=== PATIENT | female | born 1935 | race Caucasian/White ===

== ENCOUNTER 2019-03-31 09:37 | Emergency (ER) | payer BC, MEDICARE, OTHER ==
[~2019-03-31] VITALS: Ht 167.6 cm; Wt 66.7 kg
--- NOTE | 2019-03-31 09:45 | NUR ---
84 YEAR OLD FAMALE SUJEY, FROM HOME, C/O HEADACHE 3/ PS STARTED THIS MORNING. ALERT AND ORIENTED X4, BREATHING EVEN AND UNLABORED WITH NO DISTRESS NOTED. SKIN INTACT. AWAITING TO BE SEEN BY .
--- NOTE | 2019-03-31 09:55 | NUR ---
urine collected and sent to lab.
--- NOTE | 2019-03-31 09:55 | NUR ---
SHEET TURNER AT BEDSIDE TO TAKE PATIENT FOR CT SCAN
[2019-03-31 09:59] LABS: BASOPHILS # (AUTO) 0.1 /CMM (0.0-0.2); EOSINOPHILS % (AUTO) 2.3 % (0.0-6.0); HEMATOCRIT 42 % (33-45); HEMOGLOBIN 14.1 g/dL (11.5-14.8); LYMPHOCYTES # (AUTO) 1.3 /CMM (0.8-4.8); MEAN CORPUSCULAR HGB CONC 34 g/dl (31.0-36.0); MEAN CORPUSCULAR VOLUME 95 fL (82-100); MONOCYTES # (AUTO) 0.6 /CMM (0.1-1.30); MONOCYTES % (AUTO) 8.5 % (2.0-12.0); NEUTROPHILS # (AUTO) 4.4 /CMM (1.8-8.9); NEUTROPHILS % (AUTO) 68.2 % (43.0-81.0); PLATELET COUNT (AUTO) 342 /CMM (150-450); RED BLOOD CELL COUNT(AUTO) 4.42 MIL/uL (4.0-5.2); WHITE BLOOD COUNT (AUTO) 6.5 K/uL (4.3-11.0)
[2019-03-31 10:01] LABS: BILIRUBIN,URINE Negative (NEGATIVE); BLOOD, URINE Negative Ery/uL (NEGATIVE); COLOR,URINE Yellow (YELLOW); KETONES,URINE Negative (NEGATIVE); LEUKOCYTE ESTERASE ,URINE Small (NEGATIVE); NITRITE, URINE Negative (NEGATIVE); PROTEIN,URINE Negative (NEGATIVE); UGLUCOSE Negative (NEGATIVE); UROBILINOGEN,URINE 0.2 EU/dL (0.2)
[2019-03-31 10:02] LABS: APPEARANCE,URINE Hazy (CLEAR)
[2019-03-31 10:05] LABS: CALCIUM, SERUM 9.2 mg/dL (8.5-10.1); CARBON DIOXIDE 31 mmol/L (21-32); CHLORIDE 106 mmol/L (98-107); CREATININE 0.9 mg/dL (0.6-1.3); GLUCOSE 111 mg/dL (74-106); POTASSIUM 3.9 mmol/L (3.5-5.1); SODIUM SERUM 142 mmol/L (136-145); UREA NITROGEN, BLOOD 22 mg/dL (7-18)
[2019-03-31 10:09] LABS: RBC,URINE 0-3 /HPF (0-2); WBC,URINE 15-20 /HPF (0-3)
[2019-03-31 10:10] LABS: ALANINE AMINOTRANSFERASE 19 U/L (12-78); ALBUMIN 3.5 g/dL (3.4-5.0); ALKALINE PHOSPHATASE 64 U/L (46-116); ASPARTATE AMINOTRANSFERASE 19 U/L (15-37); BACTERIA,URINE Few /HPF (None Seen); BILIRUBIN,DIRECT 0.2 mg/dL (0.0-0.2); BILIRUBIN,TOTAL 1.8 mg/dL (0.2-1.0); SQUAMOUS EPITHELIAL CELL,UR Moderate /HPF (None Seen); TOTAL PROTEIN, SERUM 6.6 g/dL (6.4-8.2)
--- NOTE | 2019-03-31 11:01 | NUR ---
PATIENTS IS VESTA GRZEGORZ PHONE# [phone]
--- NOTE | 2019-03-31 11:33 | NUR ---
CALLED [employer] FOR [employer]
--- NOTE | 2019-03-31 11:50 | NUR ---
CASE MGMT WILL ARRANGE PATIENT WITH [facility] [phone]
--- NOTE | 2019-03-31 11:51 | NUR ---
OTTONIEL met with Dr. Amador who informed OTTONIEL that pt. 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 Pt. needs assistance at home and will require home health services. OTTONIEL informed Dr. Amador she will notify case planner Tricia. OTTONIEL spoke with case planner Tricia who informed OTTONIEL she will arrange [facility] for the pt. and to inform ED RN. OTTONIEL informed SHONA Eugene, [facility] will be arranged for the pt. OTTONIEL to file APS for home safety.
--- NOTE | 2019-03-31 11:56 | NUR ---
SW filed APS report for home safety evaluation. APS (Intake ID [id number]).
--- NOTE | 2019-03-31 11:57 | NUR ---
Patient discharged to home in stable condition. Written and verbal after care instructions given. Patient verbalizes understanding of instruction.
[2019-03-31 11:58] VITALS: BP 150/70
== END 2019-03-31 12:00 | disposition home or self-care (01) ==
LOC: ER 09:41
DX: N39.0 Urinary tract infection, site not specified (principal); F03.90 Unspecified dementia, unspecified severity, without behavioral disturbance, psychotic disturbance, mood disturbance, and anxiety
CPT/HCPCS: 36415; 70450-TC; 71045-TC; 80048-TC; 80076-TC; 81000-TC; 85025-TC